=== PATIENT | male | born 1965 | race Caucasian/White ===

== ENCOUNTER 2024-05-07 12:43 | Outpatient (CLI) | payer OTHER, SELFPAY ==
[2024-05-07 13:10] VITALS: PULSE 82; RESP 18; O2SAT 97
[2024-05-07] MEDS: albuterol 2.5 mg/3 mL Neb INHALATION (13:10)
== END 2024-05-07 12:44 | disposition home or self-care (01) ==
LOC: RT 12:44
PROVIDERS: Visit Provider Family Medicine
DX: R06.00 Dyspnea, unspecified (principal); R94.2 Abnormal results of pulmonary function studies
CPT/HCPCS: 94060; 94726; 94729